=== PATIENT | female | born 1950 | race Caucasian/White ===

== ENCOUNTER 2017-12-09 14:53 | Inpatient (IN) | payer MEDICARE ==
[~2017-12-09] VITALS: Ht 162.6 cm; Wt 75.9 kg
[~2017-12-09 14:53] MED LIST: ALPR0.5T PO; BACL20TA PO; BETH25TA PO; BISA-42 RC; BISA10SU2 RC; CARV3.12 PO; CHOL100013 PO; CLON0.1T PO; CLON0.5T3 PO; CLON1TAB3 PO; DIPH25CA58 PO; DOCU-109 PO; DOCU100C28 PO; ESTR0.62 PO; FAMC500T2 PO; FURO-69 PO; LACO10SO PO; LACO50TA PO; LISI-334 PO; MAGN400C PO; MECL25TA3 PO; MODA100T26 PO; MULT-207 PO; NYST60PO TP; POLY17PO5 PO; PREG200C PO; PREG50CA PO; PROM25TA10 PO; SULF1TAB23 PO; TIZA4TAB PO; TIZANIDINE HCL2 MG PO; TRAM50TA PO; TRIA15CR50 TP; WARF3TAB50 PO; WARF3TAB54 PO
--- NOTE | 2017-12-09 15:12 | EKG ---
[address] [address] Test Date: 2017-12-09 Test Time: 14:54:37 Pat Name: JIGAR GUERRERO Department: Room: Gender: F Batch Tester: : 1950 Requested By: ELSA HANNAH Order Number: [id number] Reading MD: Measurements Intervals [place] Rate: 116 P: 37 [place]: 168 QRS: -13 QRSD: 84 T: 51 QT: 314 QTc: 442 Interpretive Statements SINUS TACHYCARDIA LEFTWARD AXIS R-S TRANSITION ZONE IN V LEADS DISPLACED TO THE RIGHT OTHERWISE NORMAL ECG RI6.01 No previous ECG available for comparison
[2017-12-09] MEDS ORDERED: NITROGLYCERIN SUBLINGUAL 0.4 MG BOTTLE OF 25. SL PRN (15:15)
--- NOTE | 2017-12-09 15:18 | PHYS DOC ---
Past History Past Medical History: Hypertension, HI, Pneumonia, Seizure, Other Past Surgical History: Other Alcohol Use: None Drug Use: None Adult General Chief Complaint Chief Complaint: CHEST PAIN [facility] HPI 67-year-old female presents to the ED with chest pain. She tells me that she has had a 7 out of 10 chest heaviness for about the last 4 hours. Pain started at rest. She has had a brush or broom cutter pain intermittently for the last 2 or 3 days. She has some mild shortness of breath with exertion. She denies diaphoresis. She denies nausea or vomiting. She admits to increased lower extremity swelling more than usual. The patient has a cardiac history with a previous heart attack and stent. She believes this was about 5 years ago. She has not had a stress test or cardiac catheter since. She has been taking all of her medications. She denies fever or chills. The patient takes 2 full strength aspirin daily. Review of Systems Review of Systems Constitutional: Denies fever or chills [] Eyes: Denies change in visual acuity, redness, or eye pain [] HENT: Denies nasal congestion or sore throat [] Respiratory: Mild shortness of breath [] Cardiovascular: No additional information not addressed in HPI [] GI: Denies abdominal pain, nausea, vomiting, bloody stools or diarrhea [] : Denies dysuria or hematuria [] Musculoskeletal: Denies back pain or joint pain [] Integument: Denies rash or skin lesions [] Neurologic: Denies headache, focal weakness or sensory changes [] Endocrine: Denies polyuria or polydipsia [] All other systems were reviewed and found to be within normal limits, except as documented in this note. Allergies Allergies Allergies Coded Allergies Type Severity Reaction Last Updated Verified meperidine Allergy Severe shock 08/31/14 No tetracycline Allergy Intermediate swelling 08/31/14 No methylprednisolone Adverse Reaction Intermediate psychosis 09/02/14 No Physical Exam Physical Exam Constitutional: Well developed, well nourished, no acute distress, non-toxic appearance. [] HENT: Normocephalic, atraumatic, bilateral external ears normal, oropharynx moist, no oral exudates, nose normal. [] Eyes: PERRLA, EOMI, conjunctiva normal, no discharge. [] Neck: Normal range of motion, no tenderness, supple, no stridor. [] Cardiovascular: Tachycardia, rate 116, systolic ejection murmur[] Lungs & Thorax: Bilateral breath sounds clear to auscultation [] Abdomen: Bowel sounds normal, soft, no tenderness, no masses, no pulsatile masses. [] Skin: Warm, dry, no erythema, no rash. [] Back: No tenderness, no CVA tenderness. [] Extremities: No tenderness, no cyanosis, no clubbing, ROM intact, 2+ pitting edema bilateral lower legs [] Neurologic: Alert and oriented X 3, normal motor function, normal sensory function, no focal deficits noted. [] Psychologic: Affect normal, judgement normal, mood normal. [] EKG EKG Sinus tachycardia, rate 116, leftward axis, no ST elevation or depression[] Radiology/Procedures Radiology/Procedures EXAM: Chest, single view. HISTORY: Chest pain. COMPARISON: 11/05/2014 FINDINGS: A frontal view of the chest obtained. There is slight hypoventilation with vascular crowding and atelectasis. There is no consolidation, pleural effusion or pneumothorax. The heart is normal in size for portable technique. IMPRESSION: Slight hypoventilation with associated vascular crowding and atelectasis. No acute infiltrate. Electronically signed by: Zhanna Olson MD (12/09/2017 3:52 PM) [facility][] Course & Med Decision Making Course & Med Decision Making Pertinent Labs and Imaging studies reviewed. (See chart for details) After bringing the patient into the ED, an EKG was performed. The patient was not given aspirin due to the fact that she takes 2 full strength aspirin daily. The patient did appear to be uncomfortable. Her blood pressure was adequate so a trial of nitroglycerin was ordered. One nitroglycerin decreased the patient's pain to a 2 or 3. Her labs are remarkable for a pro BNP of 224. Her troponin is negative. Her chest x-ray shows some vascular congestion and atelectasis. The official read suggests this is due to hypoventilation. Her lungs sounded clear to auscultation. I discussed the patient with the hospitalist, Dr. Granado. He has accepted the patient for admission to telemetry. The patient is in agreement with this plan. [] Dragon Disclaimer Dragon Disclaimer This electronic medical record was generated, in whole or in part, using a voice recognition dictation system. Departure Departure: Referrals: SHERITA OESI (PCP) ELSA HANNAH DO December 09, 2017 15:18
[2017-12-09 15:25] LABS: BASO % 1 % (0-3); EOS # 0.2 x10^3/uL (0.0-0.7); EOS % 3 % (0-3); HEMATOCRIT 31.3 % (36.0-47.0); HEMOGLOBIN 10.1 g/dL (12.0-15.5); LYMPH % 25 % (24-48); MEAN CORPUSCULAR HEMOGLOBIN 27 pg (25-35); MEAN CORPUSCULAR HGB CONC 32 g/dL (31-37); MEAN CORPUSCULAR VOLUME 85 fL (79-100); MONO % 12 % (0-9); NEUT # 4.9 x10^3uL (1.8-7.7); NEUT % 60 % (31-73); PLATELET COUNT 249 x10^3/uL (140-400); RED CELL DISTRIBUTION WIDTH 16.6 % (11.5-14.5); WHITE BLOOD COUNT 8.1 x10^3/uL (4.0-11.0)
[2017-12-09 15:46] LABS: ALBUMIN 3.5 g/dL (3.4-5.0); CALCIUM 8.7 mg/dL (8.5-10.1); CREATININE 1.1 mg/dL (0.6-1.0); GFR 49.5; POTASSIUM 4.3 mmol/L (3.5-5.1); TOTAL BILIRUBIN 0.3 mg/dL (0.2-1.0)
--- NOTE | 2017-12-09 15:55 | RAD ---
EXAM: Chest, single view. HISTORY: Chest pain. COMPARISON: 11/05/2014 FINDINGS: A frontal view of the chest obtained. There is slight hypoventilation with vascular crowding and atelectasis. There is no consolidation, pleural effusion or pneumothorax. The heart is normal in size for portable technique. IMPRESSION: Slight hypoventilation with associated vascular crowding and atelectasis. No acute infiltrate. Electronically signed by: Zhanna Olson MD (12/09/2017 3:52 PM) [place] [id number]
[2017-12-09 17:08] LABS: BACTERIA,URINE 0 /HPF (0-FEW); BILIRUBIN,URINE NEG (NEG); CLARITY,URINE CLEAR; COLOR,URINE STRAW; GLUCOSE,URINE NEG (NEG); NITRITE,URINE NEG (NEG); RBC,URINE 0 /HPF (0-2); SQUAMOUS EPITHELIAL CELL,UR OCC /LPF; UROBILINOGEN,URINE 0.2 mg/dL (0.2 mg/dL); WBC,URINE OCC /HPF (0-4)
[2017-12-09 17:15] VITALS: BP 169/96
[2017-12-09] MEDS: NITROGLYCERIN SUBLINGUAL 0.4 MG BOTTLE OF 25. SL PRN (18:16)
[2017-12-09] MEDS ORDERED: PREG50CA PO (20:33)
[2017-12-09] MEDS ORDERED: MIRA25TA PO (20:33)
[2017-12-09] MEDS ORDERED: ASPI-630 PO (20:33)
[2017-12-09] MEDS ORDERED: NYSTATIN TOPICAL POWDER 15GM BOTTLE. TP PRN (21:00)
[2017-12-09] MEDS: PREGABALIN 50 MG CAPSULE PO SCH (21:18)
[2017-12-09] MEDS: CARVEDILOL 3.125 MG TABLET PO SCH (21:19)
[2017-12-09] MEDS: LACOSAMIDE 50 MG TABLET PO SCH (21:19)
[2017-12-09] MEDS: diphenhydrAMINE HCL 25 MG CAPSULE PO PRN (21:19)
[2017-12-09] MEDS: tiZANidine 4 MG TABLET. PO SCH (21:19)
[2017-12-09] MEDS: BACLOFEN 10 MG TABLET PO SCH (21:19)
[2017-12-09] MEDS: MIRABEGRON 25 MG TAB.ER.24H PO SCH (21:40)
[2017-12-09 22:44] VITALS: BP 85/55
[2017-12-09 23:15] VITALS: BP 90/57
[2017-12-09] MEDS ORDERED: IV NORMAL SALINE 500ML 250 ML IV ONE ×3 (23:15→23:30)
[2017-12-09 23:47] VITALS: BP 98/66
[2017-12-10] VITALS (11 sets, daily range): BP systolic 97–183; BP diastolic 57–122
[2017-12-10 03:31] LABS: BASO % 1 % (0-3); EOS # 0.2 x10^3/uL (0.0-0.7); EOS % 3 % (0-3); HEMATOCRIT 27.3 % (36.0-47.0); LYMPH # 2.4 x10^3/uL (1.0-4.8); LYMPH % 28 % (24-48); MEAN CORPUSCULAR HEMOGLOBIN 28 pg (25-35); MEAN CORPUSCULAR HGB CONC 33 g/dL (31-37); MEAN CORPUSCULAR VOLUME 83 fL (79-100); MONO % 11 % (0-9); NEUT # 4.8 x10^3uL (1.8-7.7); NEUT % 57 % (31-73); PLATELET COUNT 223 x10^3/uL (140-400); RED BLOOD COUNT 3.27 x10^6/uL (3.50-5.40); RED CELL DISTRIBUTION WIDTH 16.3 % (11.5-14.5); WHITE BLOOD COUNT 8.4 x10^3/uL (4.0-11.0)
[2017-12-10 03:42] LABS: CALCIUM 8.2 mg/dL (8.5-10.1); CREATININE 1.1 mg/dL (0.6-1.0); GFR 49.5; POTASSIUM 4.6 mmol/L (3.5-5.1)
[2017-12-10] MEDS: diphenhydrAMINE HCL 25 MG CAPSULE PO PRN (04:53)
[2017-12-10] MEDS: NITROGLYCERIN SUBLINGUAL 0.4 MG BOTTLE OF 25. SL PRN ×4 (05:37→22:03)
[2017-12-10] MEDS: CARVEDILOL 3.125 MG TABLET PO SCH ×2 (08:41→20:44)
[2017-12-10] MEDS: MIRABEGRON 25 MG TAB.ER.24H PO SCH (08:41)
[2017-12-10] MEDS: BACLOFEN 10 MG TABLET PO SCH ×3 (08:41→20:44)
[2017-12-10] MEDS: tiZANidine 4 MG TABLET. PO SCH ×3 (08:41→20:43)
[2017-12-10] MEDS: LACOSAMIDE 50 MG TABLET PO SCH ×2 (08:41→20:43)
[2017-12-10] MEDS: PREGABALIN 50 MG CAPSULE PO SCH ×3 (08:42→20:44)
[2017-12-10] MEDS: ASPIRIN 81 MG TAB.CHEW PO SCH ×2 (08:42→08:50)
[2017-12-10] MEDS ORDERED: ASPI325T8 PO (08:50)
--- NOTE | 2017-12-10 09:08 | PDOC2 ---
NICOLE GEE APRN 12/10/17 0908: CONSULT Date of Admission DATE: 12/10/17 TIME: 09:06 Reason for Consult: chest pain Problem List Problems Medical Problems: (1) Chest pain Status: Acute History of Present Illness Ms Cisneros is a 67 year old female who presented with complaints of chest pain. She reports pain that was a pressure sensation and started at rest. Pain lasted for about 2 hours and was reduced in the ED with NTG. She reports a second episode that occurred while at rest this am. She reports pain is different from her prior angina. She has had no testing or cardiac follow up since her MA and cath about 5 years ago. She is unable to tell me where her cath was done or what physician saw her. She reports off and on pain from acid reflux which she is unable to describe. She denies dyspnea or congestive symptoms. She walks around in her home but is very sedentary otherwise. She denies palpitations, lightheadedness or syncope. Past Medical History Cardiac: CAD (w/ stent), atrial fibrillation - she reports being recommended to take blood thinners but stopped due to bruising and now takes aspirin only Pulmonary: Pulmonary embolus, Other (Hx aspiration w/ pneumonia) Musculoskeletal: Other (Multiple Sclerosis, chronic pain) Past Surgical History No pertinent history Family History No premature coronary disease Social History Smoke: No Alcohol: none Drugs: None Current Medications Current Medications Nitroglycerin (Nitrostat) 0.4 mg PRN Q5MIN PRN SL CP RATING > 1/10 Last administered on 12/09/17at 15:21; Start 12/09/17 at 15:15; Stop 12/09/17 at 17:22 ; Status DC Nitroglycerin (Nitrostat) 0.4 mg PRN Q5MIN PRN SL CHEST PAIN Last administered on 12/10/17at 05:37; Start 12/09/17 at 16:15; Stop 12/10/17 at 16:14 Baclofen (Lioresal) 10 mg TID PO Last administered on 12/10/17at 08:41; Start at 21:00 Diphenhydramine HCl (Benadryl) 25 mg PRN Q6HRS PRN PO ALLERGIES Last administered on 12/10/17at 04:53; Start 12/09/17 at 21:00 Lacosamide (Vimpat) 150 mg BID PO Last administered on 12/10/17 08:41; Start 12/09/17 at 21:00 Nystatin (Nystop) 1 yamileth PRN BID PRN TP RASH Last administered on 12/10/17at 08: 42; Start 12/09/17 at 21:00 Pregabalin (Lyrica) 50 mg TID PO Last administered on 12/10/17at 08:42; Start at 21:00 Aspirin (Children'S Aspirin) 81 mg DAILY PO ; Start 12/10/17 at 09:00 Carvedilol (Coreg) 3.125 mg BID PO Last administered on 12/10/17at 08:41; Start 12/09/17 at 21:15 Tizanidine HCl (Zanaflex) 4 mg TID PO Last administered on 12/10/17at 08:41; Start 12/09/17 at 21:15 Sodium Chloride 250 ml @ 250 mls/hr 1X ONCE IV ; Start 12/09/17 at 23:15; Stop 12/09/17 at 23:19; Status DC Sodium Chloride 250 ml @ 250 mls/hr 1X ONCE IV ; Start 12/09/17 at 23:30; Stop 12/09/17 at 23:30; Status DC Sodium Chloride 250 ml @ 250 mls/hr ONCE ONCE IV Last administered on at 23:21; Start 12/09/17 at 23:30; Stop 12/10/17 at 00:29; Status DC Aspirin (Kingsley Aspirin) 650 mg DAILYWBKFT PO ; Start 12/10/17 at 09:00 Active Scripts Active Reported Aspirin 325 Mg Tablet 2 Tab PO DAILY Myrbetriq (Mirabegron) 25 Mg Tab.er.24h 25 Mg PO QHS Lyrica (Pregabalin) 50 Mg Capsule 50 Mg PO TID Aspirin 81 Mg Tab.chew 81 Mg PO DAILY Tizanidine Hcl (Tizanidine HCl) 4 Mg Tablet 4 Mg PO TID Baclofen 20 Mg Tablet 10 Mg PO TID Benadryl (Diphenhydramine Hcl) 25 Mg Capsule 25 Mg PO PRN Q6HRS PRN Vimpat (Lacosamide) 50 Mg Tablet 150 Mg PO BID Nystop (Nystatin) 60 Gm Powder 60 Gm TP PRN PRN Coreg (Carvedilol) 3.125 Mg Tablet 1 Tab PO BID last dose today next dose tonight Allergies: Coded Allergies: meperidine (Unverified Allergy, Severe, shock, 08/31/14) tetracycline (Unverified Allergy, Intermediate, swelling, 08/31/14) methylprednisolone (Unverified Adverse Reaction, Intermediate, psychosis, 09/02/14) Review of System as per HPI General: Alert, Oriented X3, Cooperative, No acute distress HEENT: Atraumatic, EOMI Lungs: Clear to auscultation Heart: Regular rate, Normal S1, Normal S2 Abdomen: Normal bowel sounds, Soft, No tenderness Extremities: No cyanosis, Normal pulses Neuro: Normal speech Psych/Mental Status: Mood NL VITALS Vital Signs Date Time Temp Pulse Resp B/P (MAP) Pulse Ox O2 Delivery O2 Flow Rate FiO2 12/10/17 08:41 83 134/74 12/10/17 05:30 20 95 Nasal Cannula 2.0 12/10/17 05:00 97.9 Labs Laboratory Tests Test 12/09/17 15:05 12/09/17 16:35 12/09/17 21:40 12/10/17 03:15 White Blood Count 8.1 x10^3/uL (4.0-11.0) 8.4 x10^3/uL (4.0-11.0) Red Blood Count 3.70 x10^6/uL (3.50-5.40) 3.27 x10^6/uL (3.50-5.40) Hemoglobin 10.1 g/dL (12.0-15.5) 9.0 g/dL (12.0-15.5) Hematocrit 31.3 % (36.0-47.0) 27.3 % (36.0-47.0) Mean Corpuscular Volume 85 fL (79-100) 83 fL (79-100) Mean Corpuscular Hemoglobin 27 pg (25-35) 28 pg (25-35) Mean Corpuscular Hemoglobin Concent 32 g/dL (31-37) 33 g/dL (31-37) Red Cell Distribution Width 16.6 % (11.5-14.5) 16.3 % (11.5-14.5) Platelet Count 249 x10^3/uL (140-400) 223 x10^3/uL (140-400) Neutrophils (%) (Auto) 60 % (31-73) 57 % (31-73) Lymphocytes (%) (Auto) 25 % (24-48) 28 % (24-48) Monocytes (%) (Auto) 12 % (0-9) 11 % (0-9) Eosinophils (%) (Auto) 3 % (0-3) 3 % (0-3) Basophils (%) (Auto) 1 % (0-3) 1 % (0-3) Neutrophils # (Auto) 4.9 x10^3uL (1.8-7.7) 4.8 x10^3uL (1.8-7.7) Lymphocytes # (Auto) 2.0 x10^3/uL (1.0-4.8) 2.4 x10^3/uL (1.0-4.8) Monocytes # (Auto) 1.0 x10^3/uL (0.0-1.1) 1.0 x10^3/uL (0.0-1.1) Eosinophils # (Auto) 0.2 x10^3/uL (0.0-0.7) 0.2 x10^3/uL (0.0-0.7) Basophils # (Auto) 0.0 x10^3/uL (0.0-0.2) 0.0 x10^3/uL (0.0-0.2) Prothrombin Time 10.1 SEC (9.4-11.4) Prothromb Time International Ratio 1.0 (0.9-1.1) Activated Partial Thromboplast Time 25 SEC (23-33) Sodium Level 141 mmol/L (136-145) 142 mmol/L (136-145) Potassium Level 4.3 mmol/L (3.5-5.1) 4.6 mmol/L (3.5-5.1) Chloride Level 103 mmol/L (98-107) 106 mmol/L (98-107) Carbon Dioxide Level 31 mmol/L (21-32) 29 mmol/L (21-32) Anion Gap 7 (6-14) 7 (6-14) Blood Urea Nitrogen 19 mg/dL (7-20) 17 mg/dL (7-20) Creatinine 1.1 mg/dL (0.6-1.0) 1.1 mg/dL (0.6-1.0) Estimated GFR (Cockcroft-Gault) 49.5 49.5 BUN/Creatinine Ratio 17 (6-20) Glucose Level 107 mg/dL (70-99) 98 mg/dL (70-99) Calcium Level 8.7 mg/dL (8.5-10.1) 8.2 mg/dL (8.5-10.1) Total Bilirubin 0.3 mg/dL (0.2-1.0) Aspartate Amino Transf (AST/SGOT) 17 U/L (15-37) Alanine Aminotransferase (ALT/SGPT) 15 U/L (14-59) Alkaline Phosphatase 106 U/L (46-116) Troponin I Quantitative 0.017 ng/mL (0-0.055) 0.021 ng/mL (0-0.055) 0.018 ng/mL (0-0.055) UM-Dmx-B-Type Natriuretic Peptide 224 pg/mL (0-124) Total Protein 7.0 g/dL (6.4-8.2) Albumin 3.5 g/dL (3.4-5.0) Albumin/Globulin Ratio 1.0 (1.0-1.7) Urine Collection Type Unknown Urine Color Straw Urine Clarity Clear Urine pH 7.0 Urine Specific [place] 1.010 Urine Protein Neg (NEG-TRACE) Urine Glucose (UA) Neg mg/dL (NEG) Urine Ketones (Stick) Neg mg/dL (NEG) Urine Blood Neg (NEG) Urine Nitrite Neg (NEG) Urine Bilirubin Neg (NEG) Urine Urobilinogen Dipstick 0.2 mg/dL (0.2 mg/dL) Urine Leukocyte Esterase Small (NEG) Urine RBC 0 /HPF (0-2) Urine WBC Occ /HPF (0-4) Urine Squamous Epithelial Cells Occ /LPF Urine Transitional Epithelial Cells /LPF Urine Renal Epithelial Cells Occ /LPF Urine Bacteria 0 /HPF (0-FEW) Assessment/Plan 1. Chest pain, minimally elevated troponin which remained indeterminate. No acute EKG changes. MA ruled out. Suggest Echo, MPI in am, check lipids. 2. Hypertension - resume home meds. 3. GERD - per PCP MITALI WILSON MD 12/10/17 1257: CONSULT Assessment/Plan Pt. seen and examined. 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 67 y.o woman with typical angina. Will risk stratify with MPI versus cath. Patient to make decision and final plans pending. Thanks Will follow along. NICOLE GEE APRN December 10, 2017 09:08 MITALI WILSON MD December 10, 2017 12:57
[2017-12-10] MEDS: ASPIRIN 325 MG TABLET PO SCH ×2 (11:12→11:15)
--- NOTE | 2017-12-10 16:26 | CARD ---
MR#: [id number] Date of Study: 12/10/2017 Ordering Physician: NICOLE GEE, Referring Physician: AUSTEN RACHEL Tech: AYSH Tobar APPROVED REPORT EXAM: Two-dimensional and M-mode echocardiogram with Doppler and color Doppler. Other Information Quality : Poor Technically limited study due to very difficult windows. INDICATION CAD Chest Pain 2D DIMENSIONS Left Atrium(2D)3.9 (1.6-4.0cm)IVSd0.9 (0.7-1.1cm) Aortic Root(2D)2.9 (2.0-3.7cm)LVDd3.5 (3.9-5.9cm) LVOT Diameter2.2 (1.8-2.4cm)PWd1.1 (0.7-1.1cm) LVDs1.6 (2.5-4.0cm)FS (%) 28.0 % LVEF(%)60.0 (>50%) Aortic Valve AoV Peak Aaron.146.6cm/Randy Peak GR.8.6mmHg LVOT Peak Aaron.129.6cm/sAVA (VMAX)3.39cm2 Mitral Valve MV E Yyfjpgtb48.3cm/sMV DECEL [id number] MV A Xpgiqjkn54.0cm/sMV [id number] E/A Ratio1.1MVA (PHT)5.72cm2 Tricuspid Valve RAP [id number] LEFT VENTRICLE Technically difficult study. The left ventricle is normal size. There is normal left ventricular wall thickness. The left ventricular systolic function is normal and the ejection fraction is within norm al range. The Ejection Fraction is 55-60%. There is normal LV segmental wall motion. RIGHT VENTRICLE The right ventricle is normal size. There is normal right ventricular wall thickness. The right ventr icular systolic function is normal. ATRIA The left atrium size is normal. The right atrium size is normal. Poor visualization of the atrial sep bipin. AORTIC VALVE The aortic valve is not well visualized. The aortic valve is mildly sclerotic. Doppler and Color Flow revealed no significant aortic regurgitation. There is no significant aortic valvular stenosis. MITRAL VALVE The mitral valve is not well visualized. There is no mitral valve stenosis. Doppler and Color-flow re vealed trace mitral regurgitation. TRICUSPID VALVE The tricuspid valve is not well visualized. Doppler and Color Flow revealed trace tricuspid valve reg urgitation. PULMONIC VALVE The pulmonic valve is not visualized. There is no pulmonic valvular stenosis. GREAT VESSELS The aortic root is not well visualized. The IVC was not visualized. PERICARDIAL EFFUSION There is no pleural effusion. There is no evidence of significant pericardial effusion. Critical Notification Critical Value: No <Conclusion> Technically difficult study. The left ventricle is normal size. The left ventricular systolic function is normal and the ejection fraction is within normal range. The Ejection Fraction is 55-60%. There is no significant aortic valvular stenosis. Doppler and Color Flow revealed no significant aortic regurgitation. Doppler and Color-flow revealed trace mitral regurgitation. Doppler and Color Flow revealed trace tricuspid valve regurgitation. Signed by : Johnnie Poe MD Electronically Approved : 12/10/2017 16:25:28
--- NOTE | 2017-12-10 18:34 | HP ---
ADMIT DATE: 12/09/2017 HISTORY OF PRESENT ILLNESS: The patient is a 67-year-old female patient, who apparently came to the Emergency Room complaining of chest pain that she describes as a pressure sensation, started at rest, lasted about 2 hours, and was reduced in the Emergency Room with nitroglycerin. She also reports occasional episodes of chest pain at rest. Reports her pain is different from prior angina. She has no testing or cardiac followup since her mild myocardial infarction and catheterization done about 5 years ago at [facility]. She also said that she has also pain due to acid reflux. She denied any dyspnea, orthopnea or paroxysmal nocturnal dyspnea. She is able to walk at home. Denied any dizziness, lightheadedness, or vertigo, was evaluated in the Emergency Room and her first set of cardiac enzymes showed troponin to be less than 0.17 and therefore, the patient was admitted to do 2 more cardiac enzymes and to consult the cardiology team and check her fasting lipid profile. PAST MEDICAL HISTORY: Her past medical history is significant for coronary artery disease, status post stenting 5 years ago. She also has history of atrial fibrillation. She has also hypertension, multiple sclerosis and pulmonary embolism and a history of aspiration pneumonia. She did complain of dysphagia also. PAST SURGICAL HISTORY: Past surgical history is significant for stent deployment, appendectomy, partial thyroidectomy, total abdominal hysterectomy, bilateral salpingo-oophorectomy as well as colonoscopy. ALLERGIES: SHE IS ALLERGIC TO DEMEROL AND TETRACYCLINE. MEDICATIONS: She is currently on following medications: She is on diphenhydramine 25 mg every 6 hours, tizanidine 4 mg t.i.d., baclofen 20 mg 3 times a day, carvedilol 3.125 mg twice a day, aspirin 81 mg once a day, aspirin 325 mg twice a day, lacosamide for Vimpat 150 mg twice a day, pregabalin 50 mg 3 times a day, nystatin powder apply topically 3 times a day, Myrbetriq 25 mg at bedtime. FAMILY HISTORY: The patient does not know her biological parents and she is apparently the only daughter; her uncle, Rob, who brought her up. SOCIAL HISTORY: She is , has 1 daughter. She is an ex-smoker, quit about 20 years ago. She drinks alcohol occasionally. Denied any illicit drug use. REVIEW OF SYSTEMS: The patient denied any blurring of vision, cataract, glaucoma or macular degeneration. Denied any earache, tinnitus or sensorineural deafness. Denied any nosebleeds, stuffy nose or postnasal drip. Denied any sore throat, sore tongue, toothache, hoarseness of voice. Did complain of difficulty swallowing. Denied any dysuria, frequency or hematuria. Did complain of chest pain, but denied any orthopnea, paroxysmal nocturnal dyspnea. Denied any cough, phlegm or hemoptysis. PHYSICAL EXAMINATION: GENERAL: On arrival to the Emergency Room, she looked well and was clearly in no apparent respiratory distress, slightly pale, no jaundice, cyanosis, or thyromegaly. No jugular venous distension. No lower limb edema. VITAL SIGNS: Her heart rate was 99, blood pressure was 155/89, temperature was 98.7, respiratory rate was 16, and oxygen saturation was 93% on room air. HEAD, EYES, EARS, NOSE AND THROAT: Showed normocephalic, atraumatic. NECK: Supple. HEART: Normal first and second heart sounds. No gallop, rub or murmur. CHEST: Clear to auscultation. No crepitation or rhonchi. ABDOMEN: Distended, soft, nontender. No guarding or rigidity. No organomegaly. Hernial orifice is intact. Bowel sounds normal. NEUROLOGIC: She is awake, alert, responding appropriately. All her cranial nerves are intact. EXTREMITIES: She moves extremities without difficulty. LABORATORY AND DIAGNOSTIC DATA: While in the Emergency Room, she has had lab work done, showed that her serum sodium was 141, potassium 4.3, chloride 103, bicarbonate 31, anion gap of 7, BUN 19, creatinine 1.1, estimated GFR was 49 mL per minute. Her glucose was 107, calcium was 8.7. Total bilirubin, AST, ALT, alkaline phosphatase were normal. Her total protein was 7, albumin 3.5. Her white cell count was 8100, hemoglobin 10, hematocrit 31, MCV 85, and platelet count 249,000 with normal manual differential. Her prothrombin time was 10, INR 1, aPTT was 25. Urinalysis was essentially unremarkable. She has had an EKG on admission, which showed that she was in sinus tachycardia with the heart rate of 116 with left axis deviation with no ST segment elevation or depression. Her chest x-ray showed that there is slight hypoventilation with vascular crowding and atelectasis. There is no consolidation, pleural effusion or pneumothorax. The heart is normal in size for portable technique. PLAN: The patient was admitted to do 2 more sets of cardiac enzyme and consult the Cardiology team and check her fasting lipid profile. AUSTEN RACHEL MD DR: JOSE R/norm JOB#: [id number] / [id number]
[2017-12-10] MEDS ORDERED: ONDANSETRON ODT 4 MG TAB.RAPDIS PO PRN (21:45)
[2017-12-10] MEDS ORDERED: ADENOSINE 6 MG/2 ML VIAL IV ONE ×2 (22:00)
[2017-12-10] MEDS ORDERED: FUROSEMIDE 40 MG/4 ML VIAL ONE (22:01)
[2017-12-10 22:15] LABS: BASO # 0.1 x10^3/uL (0.0-0.2); BASO % 1 % (0-3); EOS # 0.3 x10^3/uL (0.0-0.7); EOS % 3 % (0-3); HEMATOCRIT 35.5 % (36.0-47.0); HEMOGLOBIN 11.5 g/dL (12.0-15.5); LYMPH # 3.6 x10^3/uL (1.0-4.8); LYMPH % 33 % (24-48); MEAN CORPUSCULAR HEMOGLOBIN 27 pg (25-35); MEAN CORPUSCULAR HGB CONC 33 g/dL (31-37); MEAN CORPUSCULAR VOLUME 84 fL (79-100); MONO # 1.2 x10^3/uL (0.0-1.1); MONO % 11 % (0-9); NEUT # 5.7 x10^3uL (1.8-7.7); NEUT % 52 % (31-73); PLATELET COUNT 331 x10^3/uL (140-400); RED BLOOD COUNT 4.23 x10^6/uL (3.50-5.40); RED CELL DISTRIBUTION WIDTH 16.5 % (11.5-14.5); WHITE BLOOD COUNT 10.8 x10^3/uL (4.0-11.0)
[2017-12-10 22:30] LABS: ALBUMIN 3.8 g/dL (3.4-5.0); ALBUMIN/GLOBULIN RATIO 1.1 (1.0-1.7); CALCIUM 8.7 mg/dL (8.5-10.1); CREATININE 1.2 mg/dL (0.6-1.0); GFR 44.8; POTASSIUM 4.4 mmol/L (3.5-5.1); TOTAL BILIRUBIN 0.3 mg/dL (0.2-1.0); TOTAL PROTEIN 7.2 g/dL (6.4-8.2)
[2017-12-10] MEDS ORDERED: NITROGLYCERIN PREMIX 250 ML IV PRN (22:30)
[2017-12-10] MEDS ORDERED: METOPROLOL TARTRATE 5 MG/5 ML VIAL. IV ONE (22:30)
[2017-12-10] MEDS ORDERED: ESMOLOL 2500MG/250ML PREMIX 250 ML IV PRN (22:30)
[2017-12-10 22:32] LABS: BGAS PH 7.37 (7.35-7.45)
--- NOTE | 2017-12-10 22:51 | RAD ---
AP portable chest radiograph 12/10/2017 Clinical History: Respiratory distress. Shortness of breath. An AP erect portable digital radiograph of the chest was obtained. Comparison study is dated 12/09/2017. The patient is rotated to the right. The cardiac silhouette is borderline enlarged. The thoracic aorta is tortuous. Bilateral perihilar infiltrates are seen which are new since the previous examination. These likely represent pulmonary edema from CHF. No pneumothorax or pleural effusion is seen. The osseous structures are unchanged. Impression: Bilateral perihilar infiltrates are seen which likely reflect pulmonary edema from CHF. Electronically signed by: Chito Kenyon MD (12/10/2017 10:48 PM) [facility]
--- NOTE | 2017-12-10 23:44 | EKG ---
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
[2017-12-11] VITALS (9 sets, daily range): BP systolic 77–113; BP diastolic 47–59
[2017-12-11] MEDS: diphenhydrAMINE HCL 25 MG CAPSULE PO PRN (01:08)
[2017-12-11 07:22] LABS: BASO # 0.1 x10^3/uL (0.0-0.2); BASO % 1 % (0-3); EOS # 0.2 x10^3/uL (0.0-0.7); EOS % 2 % (0-3); HEMATOCRIT 28.8 % (36.0-47.0); HEMOGLOBIN 9.4 g/dL (12.0-15.5); LYMPH % 22 % (24-48); MEAN CORPUSCULAR HEMOGLOBIN 27 pg (25-35); MEAN CORPUSCULAR HGB CONC 33 g/dL (31-37); MEAN CORPUSCULAR VOLUME 84 fL (79-100); MONO # 1.1 x10^3/uL (0.0-1.1); MONO % 12 % (0-9); NEUT # 5.9 x10^3uL (1.8-7.7); NEUT % 64 % (31-73); PLATELET COUNT 228 x10^3/uL (140-400); RED BLOOD COUNT 3.44 x10^6/uL (3.50-5.40); WHITE BLOOD COUNT 9.2 x10^3/uL (4.0-11.0)
[2017-12-11 07:42] LABS: ALBUMIN/GLOBULIN RATIO 0.9 (1.0-1.7); CALCIUM 8.3 mg/dL (8.5-10.1); CREATININE 1.2 mg/dL (0.6-1.0); GFR 44.8; POTASSIUM 4.1 mmol/L (3.5-5.1); TOTAL BILIRUBIN 0.3 mg/dL (0.2-1.0); TOTAL PROTEIN 6.2 g/dL (6.4-8.2)
--- NOTE | 2017-12-11 09:14 | PN ---
DATE: 12/10/2017 SUBJECTIVE: The patient is resting, slightly propped up in bed, in no apparent distress. Continued to complain of occasional episode of chest pain, but no shortness of breath. No nausea, no vomiting, no diaphoresis. She was admitted yesterday and has had 3 sets of cardiac enzyme showed troponin to be 0.017, 0.021, and 0.018. She has had her fasting lipid profile showed that her serum triglycerides were 91, total cholesterol 176, LDL cholesterol 109, VLDL was 19, HDL cholesterol of 49 and the ratio was 3. She has had an echocardiogram done, which showed that the left ventricle is normal in size and normal systolic function with an ejection fraction of 55% to 60%. There is no significant aortic valvular stenosis. Doppler and color flow revealed no significant aortic regurgitation, trace mitral regurgitation, trace tricuspid regurgitation. The patient was given a choice to go for cardiac catheterization or stress test and she opted to do the stress test that will be done tomorrow. PHYSICAL EXAMINATION: GENERAL: When I examined her this afternoon, she looked well and was clearly in no apparent respiratory distress. She looked pale, no jaundice, cyanosis, or thyromegaly. No jugular venous distension. No limb edema. VITAL SIGNS: Her heart rate was 94, blood pressure 126/71, temperature was 98, respiratory rate 20, and oxygen saturation was 95%. The rest of clinical examination is unremarkable. LABORATORY DATA: Showed that she has 2 more sets of cardiac enzymes that were negative. Her fasting lipid profile and echocardiogram was done and her LDL was 109, HDL was 49 and ratio was 3. In summary, this is a 67-year-old female patient with longstanding history of multiple sclerosis, coronary artery disease; status post myocardial infarction and stent deployment 5 years ago at [facility], came with chest pain, so far she has 3 sets of cardiac enzymes that were negative. Her lipid profile seems to be well controlled. Echocardiogram was unrevealing. PLAN: For her to undergo stress test tomorrow and decide on further management according to finding. AUSTEN RACHEL MD DR: JOSE R/norm JOB#: [id number] / [id number]
--- NOTE | 2017-12-12 14:35 | DS ---
DATE OF DISCHARGE: 12/11/2017 HOSPITAL COURSE: The patient is a 67-year-old female patient who was admitted with chest pain that apparently has responded to nitroglycerin. The pain started in the night at rest that lasted about 2 hours and was reduced in the Emergency Room with nitroglycerin. She also reports occasional episodes of chest pain at rest. Reports her pain is different from prior angina. She has no testing or cardiac followup since her mild myocardial infarction and catheterization done about 5 years ago at [facility], so she was admitted and has had 3 sets of cardiac enzymes done. She apparently initially opted to undergo stress test as she was given a choice to undergo cardiac catheterization and apparently she was responded while she was in the floor with sudden onset of diaphoresis, nausea, vomiting. The patient was asking something to alleviate her nausea. The patient's heart rate was elevated at 130-140, blood pressure was extremely high at 213/120, and her oxygen saturation was down to 70s on room air. She was immediately placed on oxygen and titrated to 6 liters with minimal improvement. Therefore, the patient was sent to the ICU, started on BiPAP. Apparently, Dr. Villagran was contacted and he started her on brevibloc drip, started at 5 mcg per kilogram per minute. She was also given Lopressor 5 mg slow IVP. The patient's blood pressure decreased quickly along with heart rate. Pratt catheter was placed and was given IV Lasix at 40 mg and her pain has completely resolved. She has 3 sets of cardiac enzymes that ruled out myocardial infarction. However, the Cardiology team recommended transferring her to [facility] for cardiac catheterization. PHYSICAL EXAMINATION: GENERAL: Prior to discharge, she was resting slightly propped up in bed, in no apparent distress. She was pale, but no jaundice, cyanosis, or thyromegaly. No jugular venous distention. No limb edema. VITAL SIGNS: Her heart rate was 83, blood pressure was 93/59, temperature was 98.7, respiratory rate was 11, and oxygen saturation was 98% on 3.5 liters of oxygen. HEAD, EYES, EARS, NOSE, AND THROAT: Showed normocephalic, atraumatic. NECK: Supple. HEART: Showed normal first and second heart sounds. No gallop, rub, or murmur. CHEST: Clear to auscultation. No crepitation or rhonchi. ABDOMEN: Distended, soft, nontender. No guarding or rigidity. No organomegaly. All hernial orifices intact. Bowel sounds normal. NEUROLOGIC: She is awake, alert, responding appropriately. Cranial nerves intact. She has multiple sclerosis, but she is still able to ambulate independently. LABORATORY DATA: Her lab work showed a white cell count of 9200, hemoglobin 9.4, hematocrit 28.8, MCV 84, and platelet count 228,000. Her chemistry showed a serum sodium of 143, potassium 4.1, chloride 104, bicarbonate 31, anion gap of 8, BUN 18, creatinine 1.2, estimated GFR was 45 mL per minute. Her glucose was 103, calcium was 8.3. Total bilirubin, AST, ALT, alkaline phosphatase were normal. Total protein was 6.2, albumin 3. Her magnesium was 2.1. Her prothrombin time was 10, INR of 1, aPTT 25. DISCHARGE MEDICATIONS: She was transferred to [facility] to continue on all her current medications including diphenhydramine 25 mg every 6 hours, tizanidine 4 mg 3 times a day, baclofen 10 mg 3 times a day, carvedilol 3.125 mg twice a day, aspirin 81 mg once a day, lacosamide 150 mg twice a day, Lyrica 50 mg 3 times a day, Myrbetriq 25 mg at bedtime. FINAL DISCHARGE DIAGNOSES: Chest pain, minimally elevated troponin, no acute changes, myocardial ruled out, hypertension, gastroesophageal reflux disease, and episode of supraventricular tachycardia with pulmonary edema. The patient was transferred to [facility] and straight to the director of cardiac cath lab for cardiac catheterization. AUSTEN RACHEL MD DR: JOSE R/norm JOB#: [id number] / [id number]
== END 2017-12-11 09:37 | disposition short-term general hospital (02) | DRG 309 ==
LOC: ER 14:53 → 1 SOUTH 16:10 → ICU 12-10 23:31
PROVIDERS: ADMIT Internal Medicine; ATTEND Internal Medicine
PROC: 5A09357 Assistance with Respiratory Ventilation, Less than 24 Consecutive Hours, Continuous Positive Airway Pressure (ICD-10-PCS; principal; 2017-12-10)
DX: I47.1 Supraventricular tachycardia (principal); J81.1 Chronic pulmonary edema; G35 Multiple sclerosis; I48.91 Unspecified atrial fibrillation; I10 Essential (primary) hypertension; I25.10 Atherosclerotic heart disease of native coronary artery without angina pectoris; G89.29 Other chronic pain; I25.2 Old myocardial infarction; K21.9 Gastro-esophageal reflux disease without esophagitis; Z79.82 Long term (current) use of aspirin; Z79.899 Other long term (current) drug therapy; Z86.711 Personal history of pulmonary embolism; Z87.01 Personal history of pneumonia (recurrent); Z87.891 Personal history of nicotine dependence; Z90.710 Acquired absence of both cervix and uterus; Z95.5 Presence of coronary angioplasty implant and graft; Z90.49 Acquired absence of other specified parts of digestive tract; Z88.8 Allergy status to other drugs, medicaments and biological substances
CPT/HCPCS: 36415; 36600; 71045; 80048; 80053; 80061; 81001; 82553; 82803; 83735; 83880; 84484; 85025; 85610; 85730; 87086; 93005; 93306; 94660; J0153; J1940; J3490; J7040; Q0162; Q0163; 99285-25

== ENCOUNTER 2020-04-28 22:41 | Emergency (ER) | payer BC, OTHER ==
[2017-12-11 08:17] VITALS: BP 93/59
[~2020-04-28 22:41] MED LIST changes: +ASPI-630 PO; +ASPI325T8 PO; -BISA10SU2 RC; +BISA10SU4 RC; -CLON0.5T3 PO; +CLON0.5T4 PO; +CLON1TAB11 PO; -CLON1TAB3 PO; +MECL-75 PO; -MECL25TA3 PO; +MIRA25TA PO; -TIZA4TAB PO; +TIZA4TAB2 PO
--- NOTE | 2020-04-28 23:07 | PHYS DOC ---
Past History Past Medical History: Hypertension, [place], Other Past Surgical History: Other Alcohol Use: Occasionally Drug Use: None General Adult EDM: Chief Complaint: CPR/FULL ARREST HPI: HPI: ".She been more short of breath today.. and all sudden after want ad clerk arrived... she quit breathing... and I gues her heart stopped.. " Patient is a 69 year old FEMALE who presents with hx cardiopulmonary arrest. Pt. hx MS more than 10 yrs. Recent hx of increased dyspnea last few days. Patient normally follows with . Paramedics arrived at scene and 2210 hrs. Last seen and arrived at [facility] at 2240 hrs. Time of initial call is unknown. Patient poorly received CPR at scene. Oral esophageal airway. Patient reportedly had 5 doses of epinephrine before arrival at [facility]. Patient on arrival to [place] had occasional idioventricular beat. Patient on mechanical compressor. Patient last seen in the emergency department for hypertension, and chest heaviness on 12/09/2017. Patient has extensive history of MS for more than 10 years. History of hypertension. History of myocardial infarction with admission in 2012 with angioplasty and stenting., History of A. fib, DVTs, PEs, aspiration pneumonia, dysphasia,., history of pneumonia, history of seizure disorder, history of urinary tract infections. Patient reportedly has had no recent specific ill contacts. No recent travel outside the [place] area.. Review of Systems: Review of Systems: Hx. Dyspnea, Hx. increase weakness per Heart Score: Risk Factors: Risk Factors: DM, Current or recent (<one month) smoker, HTN, HLP, family history of CAD, obesity. Risk Scores: Score 0 - 3: 2.5% MACE over next 6 weeks - Discharge Home Score 4 - 6: 20.3% MACE over next 6 weeks - Admit for Clinical Observation Score 7 - 10: 72.7% MACE over next 6 weeks - Early Invasive Strategies Family History: Family History: Noncontributory to presentation Current Medications: Current Meds: See nursing for home meds Allergies: Allergies: Allergies Coded Allergies Type Severity Reaction Last Updated Verified meperidine Allergy Severe shock 08/31/14 No tetracycline Allergy Intermediate swelling 08/31/14 No methylprednisolone Adverse Reaction Intermediate psychosis 09/02/14 No Physical Exam: PE: Constitutional: Appears chronically ill and morbid in appearance HENT: Normocephalic, atraumatic, bilateral external ears normal, oropharynx moist, , nose normal. Oral airway. Eyes: Eyes fixed and dilated Neck:Trachea mid line. Scar Cardiovascular: Only had femoral pulses with compressions. No pulses without compressions Lungs & Thorax: Bilateral breath sounds equal apex with rhonchi-no spontaneous respirations Abdomen: Abdomen distended. Old surgery scars. Skin: Cyanotic, poor turgor Back: No tenderness, no CVA tenderness. [] Extremities: Arthritic changes. No spontaneous movement Neurologic: No obvious new responses EKG: EKG: Monitor showed only flatline without compressions [] Radiology/Procedures: Radiology/Procedures: [] Course & Med Decision Making: Course & Med Decision Making Pertinent Labs and Imaging studies reviewed. (See chart for details) See code sheet-time of called at 2045. at bedside. Advised no need for autopsy. Will talk with family about organ donation. Discussed presentation, code with Dr. Garcia gas station cashier for Dr. Rao,. Primary to sign the certificate. Impression: 1. Cardiopulmonary arrest 2. History of MS [] Sangeeta Disclaimer: Sangeeta Disclaimer: This electronic medical record was generated, in whole or in part, using a voice recognition dictation system. Departure Departure: Disposition: DC HOME SELF CARE/HOMELESS Condition: STABLE Referrals: SHERITA RAO (PCP) Sangeeta Disclaimer This chart was dictated in whole or in part using Voice Recognition software in a busy, high-work load, and often noisy Emergency Department environment. It may contain unintended and wholly unrecognized errors or omissions. Dragon Disclaimer This chart was dictated in whole or in part using Voice Recognition software in a busy, high-work load, and often noisy Emergency Department environment. It may contain unintended and wholly unrecognized errors or omissions. JET ROWLAND MD Apr 28, 2020 23:07
== END 2020-04-28 23:00 ==
LOC: ER 22:41
DX: I46.9 Cardiac arrest, cause unspecified (principal); G35 Multiple sclerosis; I10 Essential (primary) hypertension; I25.2 Old myocardial infarction; I48.91 Unspecified atrial fibrillation; Z87.440 Personal history of urinary (tract) infections; G40.909 Epilepsy, unspecified, not intractable, without status epilepticus; Z86.718 Personal history of other venous thrombosis and embolism; Z86.711 Personal history of pulmonary embolism; Z20.828 Contact with and (suspected) exposure to other viral communicable diseases; Z88.1 Allergy status to other antibiotic agents; Z88.8 Allergy status to other drugs, medicaments and biological substances
CPT/HCPCS: 92950; 99285; J0171; U0003